=== PATIENT | female | born 1965 | race Caucasian/White ===

== ENCOUNTER 2021-08-11 23:29 | Emergency (ER) | payer OTHER ==
[~2021-08-11] VITALS: Ht 167.6 cm; Wt 55.9 kg
--- NOTE | 2021-08-12 00:38 | PHYS DOC ---
Past History Past Medical History: Anxiety, Hypertension General Adult EDM: Chief Complaint: HYPERTENSION HPI: HPI: ",, My BP is up.. .." Patient is a 56 year old female who presents with above hx and complaints of hypertension. Patient recently started on lisinopril for blood pressure. Patient noted tonight her blood pressure was elevated and she was developing a headache. Patient's blood pressures running systolic 200s-190's / 125-90 s diastolic . Patient passes had elevated blood pressure but advised that she was taken off meds because they were no longer needed. No recent travel. No severe ill contacts. Pt. Follows with Dr. Kim as primary. Pt. has had one COVID vaccination with [employer]. Pt. very anxious. Review of Systems: Review of Systems: Constitutional: Denies fever or chills Eyes: Denies change in visual acuity HENT: Denies nasal congestion or sore throat Respiratory: Denies cough or shortness of breath Cardiovascular: Denies chest pain or edema. Complains of hypertension GI: Denies abdominal pain, nausea, vomiting, bloody stools or diarrhea : Denies dysuria Musculoskeletal: Denies back pain or joint pain Integument: Denies rash Neurologic: Denies headache, focal weakness or sensory changes Endocrine: Denies polyuria or polydipsia Lymphatic: Denies swollen glands Psychiatric: Denies depression or anxiety Family History: Family History: Noncontributory to presentation Current Medications: Current Meds: See nursing for home meds Allergies: Allergies: No known drug allergies Physical Exam: PE: Constitutional: Moderate acute distress, non-toxic appearance. [] HENT: Normocephalic, atraumatic, bilateral external ears normal, oropharynx moist, no oral exudates, nose normal. Has a coated tongue. Eyes: PERRLA, EOMI, conjunctiva normal, no discharge. [] Neck: Normal range of motion, no tenderness, supple, no stridor. [] Cardiovascular: Tachycardia heart rate regular rhythm, no murmur []. Bedside monitor shows a sinus tachycardia. Lungs & Thorax: Bilateral breath sounds equal and apex auscultation [] Abdomen: Bowel sounds normal, soft, no tenderness, no masses, no pulsatile masses. [] Skin: Warm, dry, no erythema, no rash. Poor turgor Back: No tenderness, no CVA tenderness. [] Extremities: No tenderness, no cyanosis, no clubbing, ROM intact, no edema. No cording. Arthritic changes. Scar Rt. wrist Neurologic: Alert and oriented X 3, moves all extremities on request, does have distal sensory,, no focal deficits noted. DTRs +2 patella brachial. No drift. [employer] Checker equal. Ambulatory without problems. Psychologic: Affect very anxious, judgement normal, mood normal. [] EKG: EKG: My interpretation EKG shows a sinus rhythm at 96 bpm. Prolonged QT interval at 375 ms and QTC at 482 ms. No findings of acute STEMI or contralateral changes. Does have some baseline artifact or interference. Time of EKG is 0110 hrs. [] Radiology/Procedures: Radiology/Procedures: [] Heart Score: C/O Chest Pain: No HEART Score for Chest Pain: HEART Score for Chest Pain Response (Comments) Value History Slighlty/Non-Suspicious 0 ECG Normal 0 Age >45 - < 65 1 Risk Factors No Risk Factors 0 Troponin < Normal Limit 0 Total 1 Risk Factors: Risk Factors: DM, Current or recent (<one month) smoker, HTN, HLP, family history of CAD, obesity. Risk Scores: Score 0 - 3: 2.5% MACE over next 6 weeks - Discharge Home Score 4 - 6: 20.3% MACE over next 6 weeks - Admit for Clinical Observation Score 7 - 10: 72.7% MACE over next 6 weeks - Early Invasive Strategies Course & Med Decision Making: Course & Med Decision Making Pertinent Labs and Imaging studies reviewed. (See chart for details) Patient take blood pressure 3 times a day before breakfast, before lunch, before dinner. To take blood pressure in both arms. Record readings. Do not take blood pressure more often than 3 times a day. Take meds as previous directed. Wear clonidine patch until follow-up with primary care. Return if any concerns. Follow-up pending labs. Impression: 1. Accelerated hypertension 2. Hypomagnesium 1.7 3. Elevated AST 61 and ALT 88 [] Xuan Disclaimer: Xuan Disclaimer: This electronic medical record was generated, in whole or in part, using a voice recognition dictation system. Departure Departure: Referrals: ARI PAYTON DO (PCP) Xuan Disclaimer This chart was dictated in whole or in part using Voice Recognition software in a busy, high-work load, and often noisy Emergency Department environment. It may contain unintended and wholly unrecognized errors or omissions. Dragon Disclaimer This chart was dictated in whole or in part using Voice Recognition software in a busy, high-work load, and often noisy Emergency Department environment. It may contain unintended and wholly unrecognized errors or omissions. EVY CUEVAS MD Aug 12, 2021 00:38
[2021-08-12] MEDS ORDERED: cloNIDine TTS-2 1 PATCH PATCH TD ONE ×2 (00:59→01:30)
[2021-08-12] MEDS ORDERED: cloNIDine HCL 0.1 MG TABLET ONE (01:00)
[2021-08-12 01:25] LABS: BACTERIA,URINE FEW /HPF (0-FEW); BILIRUBIN,URINE NEG (NEG); CLARITY,URINE CLEAR; COLOR,URINE YELLOW; GLUCOSE,URINE NEG (NEG); NITRITE,URINE NEG (NEG); SQUAMOUS EPITHELIAL CELL,UR FEW /LPF; UROBILINOGEN,URINE 0.2 mg/dL (0.2 mg/dL)
[2021-08-12] MEDS ORDERED: IV RINGERS SOLUTION,LACTATED 1,000 ML IV SCH (01:30)
[2021-08-12] MEDS ORDERED: cloNIDine HCL 0.1 MG TABLET PO ONE (01:30)
[2021-08-12 01:40] LABS: BASO % 1 % (0-3); EOS # 0.1 x10^3/uL (0.0-0.7); EOS % 2 % (0-3); HEMOGLOBIN 13.3 g/dL (12.0-15.5); LYMPH # 1.5 x10^3/uL (1.0-4.8); LYMPH % 26 % (24-48); MEAN CORPUSCULAR HEMOGLOBIN 33 pg (25-35); MEAN CORPUSCULAR HGB CONC 34 g/dL (31-37); MEAN CORPUSCULAR VOLUME 98 fL (79-100); MONO # 0.6 x10^3/uL (0.0-1.1); MONO % 10 % (0-9); NEUT # 3.6 x10^3uL (1.8-7.7); NEUT % 61 % (31-73); PLATELET COUNT 196 x10^3/uL (140-400); RED BLOOD COUNT 3.97 x10^6/uL (3.50-5.40); RED CELL DISTRIBUTION WIDTH 12.2 % (11.5-14.5); WHITE BLOOD COUNT 5.9 x10^3/uL (4.0-11.0)
--- NOTE | 2021-08-12 01:42 | RAD ---
XR CHEST 1V 08/12/2021 1:02 AM INDICATION: Hypertension COMPARISON: None available TECHNIQUE: Portable frontal view of the chest is provided. FINDINGS: The cardiomediastinal silhouette is within normal limits. Lungs are clear. There are no significant pleural effusions. There is no pulmonary vascular congestion. No pneumothora x. No suspicious osseous abnormality. IMPRESSION: There is no acute cardiopulmonary process. Electronically signed by: America Meyer MD (08/12/2021 1:40 AM) [facility]
[2021-08-12 01:51] LABS: CALCIUM 9.9 mg/dL (8.5-10.1); CREATININE 0.7 mg/dL (0.6-1.0); GFR 87.2; POTASSIUM 4.1 mmol/L (3.5-5.1)
[2021-08-12 02:04] LABS: ALBUMIN 4.1 g/dL (3.4-5.0); DIRECT BILIRUBIN 0.3 mg/dL (0.0-0.2); MAGNESIUM 1.7 mg/dL (1.8-2.4); TOTAL PROTEIN 7.6 g/dL (6.4-8.2)
[2021-08-12] MEDS ORDERED: LORazepam 1 MG TABLET PO ONE (02:15)
--- NOTE | 2021-08-12 02:40 | EKG ---
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
[2021-08-12] MEDS ORDERED: MAGNESIUM HYDROXIDE 2,400 MG/30 ML ORAL.SUSP. PO ONE (03:00)
[2021-08-12] MEDS ORDERED: ACETAMINOPHEN 500 MG TABLET PO ONE ×2 (03:29→04:00)
[2021-08-12 03:30] VITALS: BP 98/67
== END 2021-08-12 03:32 | disposition home or self-care (01) ==
LOC: ER 23:29
DX: I10 Essential (primary) hypertension (principal); E83.42 Hypomagnesemia; R79.89 Other specified abnormal findings of blood chemistry; F41.9 Anxiety disorder, unspecified
CPT/HCPCS: 36415; 71045; 80048; 80076; 81001; 82550; 83735; 83880; 84443; 84484; 85025; 87086; 93005; 99285-25

== ENCOUNTER 2021-08-13 21:19 | Emergency (ER) | payer OTHER ==
[~2021-08-13] VITALS: Ht 167.6 cm; Wt 55.9 kg
[2021-08-13 21:59] VITALS: BP 127/67
== END 2021-08-13 22:00 | disposition left against medical advice (07) ==
LOC: ER 21:19
DX: I10 Essential (primary) hypertension (principal); Z53.21 Procedure and treatment not carried out due to patient leaving prior to being seen by health care provider

== ENCOUNTER → 2021-09-13 | Outpatient (CLI) | payer OTHER ==
--- NOTE | 2021-09-13 13:15 | RAD ---
US ABDOMEN OR LOWER BACK LIMITED History: Reason: ELEVATED LFTS / Spl. Instructions: / History: Comparison: None. Technique: Transabdominal ultrasound images are obtained of the right upper quadrant. Findings: Liver is normal in echogenicity. Right hepatic lobe measures 12.1 cm. Portal flow is hepatopedal. Se veral hepatic cysts. Largest in the left hepatic lobe measures 1.5 cm. Largest right lobe measures 1. 67 m. Mild gallbladder sludge. No cholelithiasis. No gallbladder wall thickening or pericholecystic fluid. Common bile duct measures 5 mm in diameter. Visualized pancreas unremarkable. The right kidney measures 9.6 x 4.2 x 5.0 cm. No hydronephrosis. Visualized portions of the aorta and IVC have normal caliber. IMPRESSION: 1. Mild gallbladder sludge. 2. Hepatic cysts. Electronically signed by: Tolu Granda DO (09/13/2021 1:12 PM) [id number]
== END ==
LOC: US 07:42
PROVIDERS: ATTEND Family Medicine
DX: K76.89 Other specified diseases of liver (principal); K82.8 Other specified diseases of gallbladder
CPT/HCPCS: 76705

== ENCOUNTER 2021-12-06 20:27 | Emergency (ER) | payer OTHER ==
[~2021-12-06] VITALS: Ht 167.6 cm; Wt 53.7 kg
[2021-12-06 20:46] VITALS: BP 145/92
--- NOTE | 2021-12-06 20:57 | PHYS DOC ---
Past History Past Medical History: Anxiety, Hypertension Additional Past Medical Histor: decreased hearing (CHIKIS BRISENO APRN) Past Surgical History: Tubal ligation, Other Additional Past Surgical Histo: rt wrist--ganglion (CHIKIS BRISENO APRN) Alcohol Use: None (CHIKIS BRISENO APRN) General Adult EDM: Chief Complaint: HYPERTENSION HPI: HPI: Patient is a 56-year-old female who presents to the emergency department today for elevated blood pressure reading. Patient reports that she checked her blood pressure at home and it was 150/100. Patient reports that she checks her blood pressure 3 times a day and she was just checking it as she normally does and noticed that it was elevated. Patient reports that she was concerned because all day today her blood pressure was "low". She reports that her blood pressure earlier today was 111/74. Patient does have a history of hypertension she takes 10 mg of propanolol, 25 mg of chlorthalidone, 40 mg of lisinopril. Patient reports that she has been taking her medications as directed and has not missed any doses. Patient's primary care provider is Dr. Putnam at [facility]. Patient denies any chest pain, any pain, shortness of breath, nausea, vomiting. (CHIKIS BRISENO APRN) Review of Systems: Review of Systems: HENT: reports itchy eyes due to seasonal allergies Respiratory: See HPI Cardiovascular: See HPI GI: see HPI Psychiatric: reports feeling anxious (CHIKIS BRISENO APRN) Allergies: Allergies: Allergies Coded Allergies Type Severity Reaction Last Updated Verified No Known Drug Allergies 12/06/21 No (CHIKIS BRISENO APRN) Physical Exam: PE: Constitutional: Well developed, well nourished, no acute distress, non-toxic appearance. [] HENT: Normocephalic, atraumatic, bilateral external ears normal, oropharynx moist, no oral exudates, nose normal. [] Eyes: PERRL, EOMI, conjunctiva normal, no discharge. [] Neck: Normal range of motion, no stridor Cardiovascular:Heart rate regular rhythm, no murmur [] Lungs & Thorax: Bilateral breath sounds clear to auscultation [] Abdomen: Bowel sounds normal, soft, no tenderness, no masses, no pulsatile masses. [] Skin: Warm, dry, no erythema, no rash. [] Back: Normal range of motion Extremities: No tenderness, no cyanosis, no clubbing, ROM intact, no edema. [] Neurologic: Alert and oriented X 3, normal motor function, normal sensory function, no focal deficits noted. [] Psychologic: Affect normal, judgement normal, mood normal. [] (CHIKIS BRISENO APRN) EKG: EKG: [] (CHIKIS BRISENO APRN) Radiology/Procedures: Radiology/Procedures: [] (CHIKIS BRISENO APRN) Heart Score: C/O Chest Pain: No Risk Factors: Risk Factors: DM, Current or recent (<one month) smoker, HTN, HLP, family history of CAD, obesity. Risk Scores: Score 0 - 3: 2.5% MACE over next 6 weeks - Discharge Home Score 4 - 6: 20.3% MACE over next 6 weeks - Admit for Clinical Observation Score 7 - 10: 72.7% MACE over next 6 weeks - Early Invasive Strategies (CHIKIS BRISENO APRN) Course & Med Decision Making: Course & Med Decision Making Pertinent Labs and Imaging studies reviewed. (See chart for details) [] Patient presents to the emergency department today for elevated blood pressure reading. Patient is routinely checking her blood pressure 3 times a day she normally does not notice that it was elevated. Patient has been taking her blood pressure medication as directed and has not missed any doses. Patient is asymptomatic and has no complaints. Patient's blood pressure with her left arm is 145/92 and right side was 127/91. Patient was advised to go home and monitor her blood pressures as she normally does not keep a log of them. She is advised to continue taking her blood pressure medication as directed. Advised to contact Dr. Dixon in the morning. I discussed with patient all findings and diagnostic testing as well as the need to follow-up with PCP for further evaluation and treatment or return to the ER if any new or worsening symptoms. Strict return precautions were also discussed at length. Patient voiced understanding and agreement with the plan. Patient is hemodynamically stable at the time of disposition. (CHIKIS BRISENO APRN) Course & Med Decision Making Did not see or evaluate patient. Did not discuss patient with [employer]ER. Generally agree with [employer] F[employer]ORER's work-up and disposition per note. (TO ZAMORA MD) Xuan Disclaimer: Dragon Disclaimer: This electronic medical record was generated, in whole or in part, using a voice recognition dictation system. (CHIKIS BRISENO APRN) Departure Departure: Impression: Primary Impression: Asymptomatic hypertension Disposition: HOME / SELF CARE / HOMELESS Condition: GOOD Referrals: NISSA PUTNAM [employer]ER (PCP) Patient Instructions: Hypertension Additional Instructions: You were seen in the emergency department today for elevated blood pressure reading at home. Your blood pressure readings in the emergency department today your not elevated that required emergent antihypertensive medications. Go home and monitor your blood pressure at home. I would advise you to keep a log book of these so that you can bring to your primary care provider appointment. Continue taking your blood pressure medication as directed. Please follow-up with your primary care provider tomorrow regarding your ER visit. Return to the emergency department if you develop chest pain, shortness of breath, dizziness, severe headache, intractable nausea or vomiting or you notice that your blood pressure has become elevated. CHIKIS BRISENO APRN Dec 06, 2021 20:57 TO ZAMORA MD Dec 06, 2021 21:24
== END 2021-12-06 21:08 | disposition home or self-care (01) ==
LOC: ER 20:27
DX: I10 Essential (primary) hypertension (principal); F41.9 Anxiety disorder, unspecified
CPT/HCPCS: 99281